=== PATIENT | female | born 1995 | race Two or more races ===

== ENCOUNTER 2018-05-20 20:42 | Emergency (ER) | payer SELFPAY ==
[~2018-05-20] VITALS: Ht 170.2 cm; Wt 64.0 kg
[2018-05-20 20:46] VITALS: BP 109/73
[2018-05-20] MEDS ORDERED: IBUPROFEN 200 MG TABLET ONE (23:00)
[2018-05-20] MEDS ORDERED: IBUPROFEN 200 MG TABLET PO ONE (23:00)
== END 2018-05-20 23:49 | disposition home or self-care (01) ==
LOC: ED 23:43
DX: S16.1XXA Strain of muscle, fascia and tendon at neck level, initial encounter (principal); S29.012A Strain of muscle and tendon of back wall of thorax, initial encounter; V47.6XXA Car passenger injured in collision with fixed or stationary object in traffic accident, initial encounter; Y93.89 Activity, other specified; Y92.488 Other paved roadways as the place of occurrence of the external cause; Y99.8 Other external cause status
CPT/HCPCS: 72072; 99284